=== PATIENT | female | born 1995 | race Caucasian/White ===

== ENCOUNTER 2023-11-04 15:07 | Inpatient (IN) ==
--- NOTE | 2023-11-04 16:45 | Anesthesiology Consultation ---
Date of Service November 04, 2023 Assessment & Plan (1) Encounter for pre-operative examination: Chart Review Chart Review: Patient NOT seen in Pre Admission Testing emergent Consults Requested none History Surgery Operation Date: 11/04/23 16:40 Proposed Procedures p Section in LD - Emerson Desouza MD Height/Weight Height: 5 ft 5 in Weight: 97.069 kg Allergies Allergy/AdvReac Type Severity Reaction Status Date / Time No Known Allergies Allergy Verified 11/04/23 14:02 Medications Home Medications Medication Instructions Recorded Confirmed Last Taken fish oil-dha-epa PO 04/25/23 11/04/23 Unknown magnesium PO 04/25/23 11/04/23 Unknown [id number] PO 04/25/23 11/04/23 Unknown [] Past Medical History Medical History Varicella vaccine Past Family History Family History Grandmother (Maternal) Alzheimer disease Father Coronary heart disease Heart disease Hypertension Myocardial infarction Grandfather (Paternal) Heart disease Osteoarthritis Mother Stroke Grandmother (Paternal) Ovarian cancer Other Cancer Testicular cancer Denies family history of Rheumatoid arthritis Sudden SIDS (sudden syndrome) Prostate cancer Diabetes Deep vein thrombosis Osteoporosis Dyslipidemia Cerebral aneurysm Bipolar disorder Clotting disorder Crohn's disease Dementia Depression Kidney disease Breast cancer Schizophrenia Congenital kidney disease Gestational diabetes Lung cancer COPD (chronic obstructive pulmonary disease) Colorectal cancer Pulmonary embolism Lung disease Ulcerative colitis Colonic polyp Asthma Cystic kidney disease Past Surgical History Surgical History S/P wisdom tooth extraction [place] teeth removed Social History Smoking Status: Never smoker Do You Dip or Chew Tobacco: No Hx Alcohol Use: No Hx Substance Use: No Physical Exam Vital Signs Last Vital Signs Temp 97.9 F 11/04/23 15:34 Pulse 69 11/04/23 15:53 Resp 16 11/04/23 15:34 BP 118/72 11/04/23 15:40 Pulse Ox 96 11/04/23 15:53
[2023-11-04] MEDS: CITRIC ACID/SODIUM CITRATE 15 ML UDC ONE (16:46)
[2023-11-04] MEDS ORDERED: NALOXONE HCL 0.08 MG in SYRINGE 1.8 ML IV PRN (17:10)
[2023-11-04] MEDS ORDERED: LACTATED RINGER'S 500 ML IV PRN (17:10)
[2023-11-04] MEDS ORDERED: ONDANSETRON INJ 2 MG/ML 2 ML VIAL IV PRN (17:10)
[2023-11-04] MEDS ORDERED: ePHEDrine sulfate 50 MG/ML AMP IV PRN (17:10)
[2023-11-04] MEDS ORDERED: NALOXONE HCL 0.4 MG/1 ML VIAL/CARP IV PRN (17:10)
[2023-11-04] MEDS ORDERED: diphenhydrAMINE 50 MG/ML VIAL IV PRN (17:10)
[2023-11-04] MEDS ORDERED: HYDROmorphone INJ 0.5 MG/0.5 ML SYR IV PRN (17:10)
[2023-11-04] MEDS ORDERED: KETOROLAC 30 MG/ML VIAL IV PRN (17:10)
[2023-11-04] MEDS ORDERED: PROMETHAZINE 6.25 MG/50.25 ML BAG IV PRN (17:10)
[2023-11-04] MEDS ORDERED: NALBUPHINE HCL INJ 10 MG/ML AMP IV PRN (17:10)
[2023-11-04] MEDS ORDERED: ACETAMINOPHEN 1,000 MG/100 ML VIAL IV PRN (17:10)
[2023-11-04] MEDS ORDERED: NALOXONE HCL 1 MG in SODIUM CHLORIDE 0.9% 1,000 ML IV PRN (17:10)
[2023-11-04] MEDS ORDERED: NO NARCOTICS OR SEDATIVES SCH (17:15)
[2023-11-04] MEDS ORDERED: DC INTRASPINAL MORPHINE SCH (17:15)
[2023-11-04 17:23] LABS: Hemoglobin 12.3 g/dl (12.0-16.0); Mean Corpuscular Hemoglobin 30.8 pg (25.0-34.0); Mean Corpuscular Hgb Conc 35.1 g/dL (32.0-36.0); Mean Corpuscular Volume 87.5 fL (80.0-100.0); Mean Platelet Volume 10.5 fL (9.4-12.4); Platelet Count 201 K/uL (130-400); RDW Standard Deviation 41.5 fL (36.4-46.3); White Blood Count 11.34 K/ul (4.8-10.8)
[2023-11-04] MEDS ORDERED: MAGNESIUM HYDROXIDE SUSP 30 ML UDC PO PRN (17:41)
[2023-11-04] MEDS ORDERED: SENNA 8.6 MG TAB PO PRN (17:41)
[2023-11-04] MEDS ORDERED: HYDROCORTISONE ACETATE 25 MG SUPP PR PRN (17:41)
[2023-11-04] MEDS ORDERED: CALCIUM CARBONATE 500 MG CHEWABLE TAB PO PRN (17:41)
[2023-11-04] MEDS ORDERED: BENZOCAINE 20% SPRY 85 APPLN/85 GM CAN EXT PRN (17:41)
--- NOTE | 2023-11-04 17:53 | Anesthesiology Progress Note ---
Date of Service November 04, 2023 Anesthesia Post Procedure Vital Signs Vital Signs: Temp Pulse Resp BP Pulse Ox 11/04/23 17:51 58 L 99 11/04/23 17:47 57 L 130/73 11/04/23 17:46 61 100 11/04/23 15:53 69 96 11/04/23 15:48 75 97 11/04/23 15:43 66 96 11/04/23 15:40 62 118/72 11/04/23 15:38 70 97 11/04/23 15:34 97.9 F 69 16 118/72 97 11/04/23 15:33 73 97 11/04/23 15:28 81 97 11/04/23 15:23 77 96 11/04/23 15:18 73 96 Transfer of Care Handoff Completed per policy Notes Mental Status: alert / awake / arousable and participated in evaluation Patient Amnestic to Procedure: Yes Nausea / Vomiting: adequately controlled Pain: adequately controlled Airway Patency, RR, SpO2: stable & adequate BP & HR: stable & adequate Hydration State: stable & adequate Neuraxial Anesthesia: was administered and sensory block is resolving Anesthetic Complications: no major complications apparent and Pt Satisfied with anesthetic care
--- NOTE | 2023-11-04 17:56 | Post Operative Brief Note ---
PG Immediate Post Op with CF Date of Surgery November 04, 2023 Pre & Post Diagnosis Operation Date: 11/04/23 16:40 Preop diagnosis:term intrauterine at 41 weeks. Nonreassuring monitoring with prolonged deceleration remote from delivery Postop diagnosis: same status post procedure I identified the patient and participated in the time-out.: Yes Procedure Operation Date: 11/04/23 16:40 Urgent primary low-transverse section Surgeon Emerson Desouza MD Cyber Systems Engineer Nursing staff Estimated Blood Loss 607 Findings Consistent with Post-Op Diagnosis OB Procedure charges OB Charges [id number]
--- NOTE | 2023-11-04 17:57 | Operative Report ---
PG Post Operative Report Pre & Post Diagnosis Operation Date: 11/04/23 16:40 Preop diagnosis: Term at 41 weeks. Nonreassuring monitoring with prolonged deceleration remote from delivery Postop diagnosis: Same status post procedure I identified the patient and participated in the time-out.: Yes Procedure Operation Date: 11/04/23 16:40 Primary low-transverse section Surgeon Emerson Desouza MD Mixing Machine Tender Cork Rod Nursing staff Estimated Blood Loss 607 Findings Consistent with Post-Op Diagnosis Specimens Placenta Description of Procedure Patient was taken the operating room after consent was ensured. Upon presentation she was properly identified. Anesthesia obtained and patient prepped and draped in normal sterile fashion. Preprocedural timeout was pe rformed. A Pfannenstiel incision was made with a knife. This was carried down to underlying fascia with the Bovie and blunt dissection. The fascia was nicked at the midline with a knife and extended laterally with pickjamal and Holland scissors. Abdominal cavity was entered bluntly and placed on stretch to provide adequate room for delivery. A low transverse uterine incision was made with a knife. Head of the was delivered through the hysterotomy followed by body and shoulders. noted to be vigorous at time of delivery and a 30 second delayed cord clamping was initiated after which the cord was double clamped and cut. Baby taken to the waiting nursery staff. Attention was turned to delivery of the placenta which delivered intact with three-vessel cord gentle cord traction. Uterus was exteriorized and several passes were made to remove any remaining membranes with a dry lap. Hysterotomy was reapproximated with 0 Vicryl continuous running lock stitch with a second i mbricating layer performed and excellent hemostasis noted. Posterior cul-de-sac cleaned of clots and debris's. Uterus returned maternal abdomen and right left paracolic gutters cleaned of clots and debris's. Hysterotomy remained hemostatic. Subcutaneous fascia and muscle layers inspected noted be hemostatic. Fascia was reapproximated 0 Vicryl continuous running stitch. Subcutaneous layer reapproximated 2 layers using 2-0 plain. Skin reapproximated with 3-0 Vicryl and continuous subcuticular stitch. Dermabond placed on top. Both mother and in stable condition at the completion of the case. Needle sponge and instrument counts correct at the completion of the case I attest to the content of the Intraoperative Record and any orders documented therein. Any exceptions are noted below. OB Procedure Charges [id number]
--- NOTE | 2023-11-04 21:03 | History & Physical Report ---
Date of Service November 04, 2023 Assessment & Plan (1) Supervision of normal first : Plan: Asya is a 28-year-old G1, P0 currently at 41 weeks 3 days gestational age presented initially for prolonged monitoring secondary to nonreassuring NST in clinic with late decelerations noted. Patient was noted to have late decelerations with intermittent episodes of mild to moderate variability. After a 6-minute prolonged deceleration noted I discussed delivery recommendation via a primary low-transverse section secondary to nonreassuring monitoring with prolonged deceleration remote from delivery. Discussed inability to induce secondary to the recurrent late decelerations. Discussed primary including risk and benefits. Consent forms reviewed and signed. (2) Non-reassuring heart rate with late deceleration: History of Present Illness Primary Care Provider: Karoline Serna MD Asya is a 28-year-old G1, P0 currently at 41 weeks 3 days gestational age presented for extended monitoring secondary to deceleration noted on NST in clinic. Patient was monitored for approximately 45 minutes to 1 hour. During that time there is noted to be several late decelerations and mild to moderate variability intermittently. Upon presentation to discuss options due to the noted tracing concerns patient was noted to have a 6-minute prolonged deceleration to the low 60s. Maternal resuscitation was performed and ultimately heart rate did come back up to the 120s. Due to the recurrent late decelerations and the prolonged deceleration I discussed delivery via a primary for nonreassuring tracing remote from delivery with inability to augment due to poor tracing. I discussed the procedure in detail including risks and benefits. Consent forms reviewed and signed. OB Labs: Blood Type O Positive 05/02/23 Antibody Screen NEGATIVE 05/02/23 Hemoglobin 11.6 g/dl (12.0-16.0) L 08/09/23 Hematocrit 33.6 % (37.0-47.0) L 08/09/23 Mean Corpuscular Volume 88.6 fL (80.0-100.0) 05/02/23 Platelet Count 259 K/uL (130-400) 05/02/23 Rubella IgG Antibody Immune (Immune) 05/02/23 Rapid Plasma Reagin Nonreactive (Nonreactive) 05/02/23 Hepatitis B Surface Antigen. NON-REACTIVE (NON-REACTIVE) 05/02/23 Hepatitis C Antibody (EIA) NON-REACTIVE (NON-REACTIVE) 05/02/23 HIV (1&2) Ag and Ab Confirmation NON-REACTIVE (NON-REACTIVE) 05/02/23 Glucose 1 Hour 50 gm Load 143 mg/dl (70-130) H 06/12/23 OB Optional Labs: Chlamydia trachomatis RNA Not Detected (NotDetected) 05/02/23 Neisseria gonorrhoeae RNA Not Detected (NotDetected) 05/02/23 Labs Reviewed: Declines carrier screening--mln cfdna-low risk--mln gbs neg--akh 2 hr gtt x 2 wnl Allergies Allergy/AdvReac Type Severity Reaction Status Date / Time No Known Allergies Allergy Verified 11/04/23 14:02 Home Medications Medication Instructions Recorded Confirmed Type fish oil-dha-epa PO 04/25/23 11/04/23 History magnesium PO 04/25/23 11/04/23 History [id number] PO 04/25/23 11/04/23 History [] Patient History Medical History Varicella vaccine Surgical History S/P wisdom tooth extraction [place] teeth removed Family History Grandmother (Maternal) Alzheimer disease Father Coronary heart disease Heart disease Hypertension Myocardial infarction Grandfather (Paternal) Heart disease Osteoarthritis Mother Stroke Grandmother (Paternal) Ovarian cancer Other Cancer Testicular cancer Denies family history of Rheumatoid arthritis Sudden SIDS (sudden syndrome) Prostate cancer Diabetes Deep vein thrombosis Osteoporosis Dyslipidemia Cerebral aneurysm Bipolar disorder Clotting disorder Crohn's disease Dementia Depression Kidney disease Breast cancer Schizophrenia Congenital kidney disease Gestational diabetes Lung cancer COPD (chronic obstructive pulmonary disease) Colorectal cancer Pulmonary embolism Lung disease Ulcerative colitis Colonic polyp Asthma Cystic kidney disease Social History (Updated 04/25/23 @ 10:00 by Amber Gregorio RN) Smoking Status: Never smoker Second Hand Exposure: No; Do You Dip or Chew Tobacco: No; Tobacco Cessation Education Requested by Patient: No Hx Alcohol Use: No Hx Substance Use: No Preferred Language: Finnish Communication Ability: Effective Hearing Ability: Normal Watershed Manager Required: No Beliefs That Will Affect Care: None marital status: marital status details: Gigi Mueller (31) Current Living Situation: Spouse Current Living Situation Comment: [facility]- current occupational status: employed current occupation: [employer] How many Children do You have: 0 Other Information That Helps Us Care for You: No Feels Safe at Home: Yes Safety Concerns: Feels Safe At This Time Childhood Exposure to Second-Hand Smoke: No Diet: vegan and vegetarian caffeine: No during the past year weight has: increased > 10 lbs Dental Care, Regularly: No Physical Activity Frequency: 3-4 Times per Week Seatbelt Use: always Sunscreen Use: No Do you think of yourself as: bisexual Sexual Activity: has been sexually active, but not for at least 12 months Gender Identity: Female Assistive Devices: None Results & Data Vital Signs (Past 12 Hours) Vital Signs Temp Pulse Resp BP Pulse Ox 11/04/23 15:53 69 96 11/04/23 15:48 75 97 11/04/23 15:43 66 96 11/04/23 15:40 62 118/72 11/04/23 15:38 70 97 11/04/23 15:34 36.6 C 69 16 118/72 97 11/04/23 15:33 73 97 11/04/23 15:28 81 97 11/04/23 15:23 77 96 11/04/23 15:18 73 96 Coding Level of Care Code None Diagnoses Encounter for supervision of normal first in third trimester Z34.03 Trimester: third trimester Non-reassuring heart rate with late deceleration O36.8390 (1) Supervision of normal first Trimester: third trimester Qualified Code(s): Z34.03 - Encounter for supervision of normal first , third trimester
[2023-11-04] MEDS: ceFAZolin 2000MG 2,000 MG/15 ML SYR IV SCH (21:50)
[2023-11-04] MEDS: CITRIC ACID/SODIUM CITRATE 15 ML UDC PO SCH (21:50)
[2023-11-04] MEDS: MoRPHine SULFATE PF 1 MG/ML 10 ML AMP/VIAL INT SPINAL ONE (21:51)
[2023-11-04] MEDS: LACTATED RINGER'S 1,000 ML IV SCH ×3 (21:51)
[2023-11-04] MEDS: SODIUM CHLORIDE 0.9% 1,000 ML IV SCH (21:51)
[2023-11-04] MEDS: ACETAMINOPHEN 500 MG TAB PO SCH (21:52)
[2023-11-04] MEDS: OXYTOCIN 20 UNITS/LR 1,002 ML IV SCH (21:56)
[2023-11-04] MEDS: ACETAMINOPHEN 325 MG TAB PO SCH (22:29)
[2023-11-04] MEDS: IBUPROFEN 600 MG TAB PO SCH (22:29)
[2023-11-04] MEDS: DIPHTHER/TETAN/PERTUS Vaccine (Tdap, Adol/Adult) 0.5mL IM ONE (22:32)
[2023-11-04] MEDS: DOCUSATE SODIUM 100 MG CAP PO SCH (23:09)
[2023-11-04] MEDS: SIMETHICONE 80 MG CHEW PO SCH (23:10)
[2023-11-05 06:39] LABS: Hematocrit (blood only) 29.8 % (37.0-47.0); Hemoglobin 10.7 g/dl (12.0-16.0)
[2023-11-05] MEDS: PRENATAL VITAMIN 1 TAB PO SCH (07:35)
[2023-11-05] MEDS: FERROUS SULFATE 325 MG TAB PO SCH (07:35)
--- NOTE | 2023-11-05 08:10 | Obstetrical Progress Note ---
Date of Service <Niels Ribera MD - Last Filed: 11/05/23 08:31> November 05, 2023 Assessment & Plan <Niels Ribera MD - Last Filed: 11/05/23 08:31> (1) care and examination: POD#1: Stable, continue routine care, work on regaining normal bowel and bladder fxn Rh+, gbs neg, ri <Emerson Desouza MD - Last Filed: 11/06/23 16:18> (1) care and examination: Subjective <Niels Ribera MD - Last Filed: 11/05/23 08:31> Asya is a 28 y/o female who is POD#1 following delivery at 41 weeks. She reports minimal pain (03/19). She is ambulating and eating well. She is passing gas but has not had a BM. She reports her bladder feels full but she has not been able to urinate without a cath. Currently breast feeding. Constitutional: no fever, no chills or no sweats Respiratory: no dyspnea Cardiovascular: no chest pain, no palpitations or no calf pain Breast: no breast pain Genitourinary (female): no dysuria Neurologic: no headache(s) no changes in vision, no headaches Physical Exam <Niels Ribera MD - Last Filed: 11/05/23 08:31> General: Alert, oriented. No acute distress. Cardiac: Regular rate and rhythm, no murmurs, rubs, or gallops. Respiratory: Clear to auscultation bilaterally, no wheezes/rales/rhonchi. No increased work of breathing. Symmetrical chest rise. No respiratory distress. Abdomen: Soft, nontender, nondistended. Bowel sounds present. Uterus: Uterine fundus firm, surgical scar clean and healing well. Lower extremities: No lower extremity edema or swelling. No deep calf pain. Results & Data <Niels Ribera MD - Last Filed: 11/05/23 08:31> Vital Signs (Past 12 Hours) Vital Signs Temp Pulse Resp BP Pulse Ox O2 Del Method 11/05/23 07:05 18 96 11/05/23 06:05 16 98 11/05/23 05:10 20 95 11/05/23 04:15 36.7 C 70 18 113/72 98 Room Air 08/28/24 03:00 16 97 11/05/23 02:00 16 98 11/05/23 01:00 18 99 11/05/23 00:00 18 99 11/04/23 23:05 36.7 C 63 18 116/75 98 Room Air 11/04/23 22:38 18 97 11/04/23 21:45 16 100 11/04/23 20:45 16 99 Laboratory Results 11/05/23 05:51 Supervising Physician <Emerson Desouza MD - Last Filed: 11/06/23 16:18> Co-Signing Physician Notes Patient seen with resident and agree with the above findings and plan. Routine care Resident Activity Tracking <Niels Ribera MD - Last Filed: 11/05/23 08:31> Resident Involvement: Resident Care Provided Care Provided: Adult Hospital Medicine
[2023-11-05] MEDS ORDERED: oxyCODONE HCL IR 5 MG TAB (IMMEDIATE RELEASE) PO PRN (11:10)
[2023-11-05] MEDS ORDERED: HYDROmorphone INJ 0.5 MG/0.5 ML SYR IV PRN (11:10)
[2023-11-05] MEDS ORDERED: diphenhydrAMINE 50 MG/ML VIAL IV PRN (11:10)
[2023-11-05] MEDS ORDERED: diphenhydrAMINE Capsule 25 MG CAP PO PRN (11:10)
[2023-11-05] MEDS ORDERED: PROMETHAZINE 12.5 MG/50.5 ML BAG IV PRN (11:10)
[2023-11-05] MEDS ORDERED: ONDANSETRON INJ 2 MG/ML 2 ML VIAL IV PRN (11:10)
[2023-11-05] MEDS: KETOROLAC 30 MG/ML VIAL IV SCH (12:03)
[2023-11-05] MEDS: bisacodyL 5 MG TABEC PO SCH (19:53)
--- NOTE | 2023-11-06 05:53 | Obstetrical Progress Note ---
Date of Service <Niels Ribera MD - Last Filed: 11/06/23 07:11> November 06, 2023 Assessment & Plan <Niels Ribera MD - Last Filed: 11/06/23 07:11> (1) care and examination: POD#2: Stable, continue routine care, would like to stay one more night Rh+, gbs neg, ri <Juliette Velasquez MD - Last Filed: 11/06/23 07:23> (1) care and examination: Subjective <Niels Ribera MD - Last Filed: 11/06/23 07:11> Asya is a 28 y/o female who is POD#2 following delivery at 41 weeks. She was very tearful this morning, reports out of gratitude. Pain is well controlled except mild gas pain radiating to shoulder. She is ambulating, eating and drinking well. Has not had BM but is passing gas. Currently breast feeding. Constitutional: no fever, no chills or no sweats Respiratory: no dyspnea Cardiovascular: no chest pain, no palpitations or no calf pain Breast: no breast pain Genitourinary (female): no dysuria Neurologic: no headache(s) no changes in vision, no headaches Physical Exam <Niels Ribera MD - Last Filed: 11/06/23 07:11> General: Alert, oriented. No acute distress. Cardiac: Regular rate and rhythm, no murmurs, rubs, or gallops. Respiratory: Clear to auscultation bilaterally, no wheezes/rales/rhonchi. No increased work of breathing. Symmetrical chest rise. No respiratory distress. Abdomen: Soft, nontender, nondistended. Bowel sounds present. Uterus: Uterine fundus firm, surgical scar clean and healing well. Lower extremities: No lower extremity edema or swelling. No deep calf pain. Results & Data <Niels Ribera MD - Last Filed: 11/06/23 07:11> Vital Signs (Past 12 Hours) Vital Signs Temp Pulse Resp BP Pulse Ox O2 Del Method 11/05/23 23:00 36.6 C 69 18 125/75 96 Room Air 11/05/23 19:40 36.5 C 63 18 111/70 97 Room Air Supervising Physician <Juliette Velasquez MD - Last Filed: 11/06/23 07:23> Co-Signing Physician Notes Resident Physician Supervision Note: I interviewed and examined the patient. Discussed with Dr. Ribera and agree with findings and plan as documented in the note. Any exceptions or clarifications are listed here: POD2 s/p pLTCS, doing well. VSS, exam benign and wnl. Continue routine care, discussed gas pain tx Documented By: Juliette Velasquez MD Resident Activity Tracking <Niels Ribera MD - Last Filed: 11/06/23 07:11> Resident Involvement: Resident Care Provided Care Provided: Adult Hospital Medicine
[2023-11-06] MEDS: IBUPROFEN 600 MG TAB PO PRN (17:09)
[2023-11-06] MEDS: ACETAMINOPHEN 325 MG TAB PO PRN (17:09)
[2023-11-06] MEDS ORDERED: bisacodyL 10 MG SUPP PR PRN (17:42)
[2023-11-06 18:55] VITALS: PULSE 62; RESP 18
[2023-11-06 22:59] VITALS: BP 132/83; TEMP 98.1; O2SAT 99
--- NOTE | 2023-11-07 07:01 | Obstetrical Progress Note ---
Date of Service <Niels Ribera MD - Last Filed: 11/07/23 07:31> November 07, 2023 Assessment & Plan <Niels Ribera MD - Last Filed: 11/07/23 07:31> (1) care and examination: POD#3: Stable, continue routine care, ready for d/c today Rh+, gbs neg, ri <Maria Alejandra Alegria MD, FACOG - Last Filed: 11/07/23 07:37> (1) care and examination: Subjective <Niels Ribera MD - Last Filed: 11/07/23 07:31> Asya is a 28 y/o female who is POD#3 following delivery at 41 weeks. She feels well, her pain well controlled w analgesics. She has been walking, eating, drinking, and urinating normally. She has not had a BM yet but is passing gas. She does report some back pain but attributes it to sitting in a hospital bed so long. Constitutional: no fever, no chills or no sweats Respiratory: no dyspnea Cardiovascular: no chest pain, no palpitations or no calf pain Breast: no breast pain Genitourinary (female): no dysuria Neurologic: no headache(s) Physical Exam <Niels Ribera MD - Last Filed: 11/07/23 07:31> General: Alert, oriented. No acute distress. Cardiac: Regular rate and rhythm, no murmurs, rubs, or gallops. Respiratory: Clear to auscultation bilaterally, no wheezes/rales/rhonchi. No increased work of breathing. Symmetrical chest rise. No respiratory distress. Abdomen: Soft, nontender, nondistended. Bowel sounds present. Uterus: Uterine fundus firm, surgical scar clean and healing well. Lower extremities: No lower extremity edema or swelling. No deep calf pain. Results & Data <Niels Ribera MD - Last Filed: 11/07/23 07:31> Vital Signs (Past 12 Hours) Vital Signs Temp Pulse Resp BP Pulse Ox O2 Del Method 11/06/23 22:58 36.7 C 62 18 132/83 99 Room Air Supervising Physician <Maria Alejandra Alegria MD, FACOG - Last Filed: 11/07/23 07:37> Co-Signing Physician Notes Resident Physician Supervision Note: I interviewed and examined the patient. Discussed with Dr. Ribera and agree with findings and plan as documented in the note. Any exceptions or clarifications are listed here: Patient doing well. Plan d/c home. Instructions given. Documented By: Maria Alejandra Alegria MD, FACOG Resident Activity Tracking <Niels Ribera MD - Last Filed: 11/07/23 07:31> Resident Involvement: Resident Care Provided Care Provided: Adult Hospital Medicine
--- NOTE | 2023-11-10 09:47 | Discharge Summary ---
Date of Service November 10, 2023 Admission HPI Per Admitting Provider Asya is a 28-year-old G1, P0 currently at 41 weeks 3 days gestational age presented for extended monitoring secondary to deceleration noted on NST in clinic. Patient was monitored for approximately 45 minutes to 1 hour. During that time there is noted to be several late decelerations and mild to moderate variability intermittently. Upon presentation to discuss options due to the noted tracing concerns patient was noted to have a 6-minute prolonged deceleration to the low 60s. Maternal resuscitation was performed and ultimately heart rate did come back up to the 120s. Due to the recurrent late decelerations and the prolonged deceleration I discussed delivery via a primary for nonreassuring tracing remote from delivery with inability to augment due to poor tracing. I discussed the procedure in detail including risks and benefits. Consent forms reviewed and signed. OB Labs: Blood Type O Positive 05/02/23 Antibody Screen NEGATIVE 05/02/23 Hemoglobin 11.6 g/dl (12.0-16.0) L 08/09/23 Hematocrit 33.6 % (37.0-47.0) L 08/09/23 Mean Corpuscular Volume 88.6 fL (80.0-100.0) 05/02/23 Platelet Count 259 K/uL (130-400) 05/02/23 Rubella IgG Antibody Immune (Immune) 05/02/23 Rapid Plasma Reagin Nonreactive (Nonreactive) 05/02/23 Hepatitis B Surface Antigen. NON-REACTIVE (NON-REACTIVE) 05/02/23 Hepatitis C Antibody (EIA) NON-REACTIVE (NON-REACTIVE) 05/02/23 HIV (1&2) Ag and Ab Confirmation NON-REACTIVE (NON-REACTIVE) 05/02/23 Glucose 1 Hour 50 gm Load 143 mg/dl (70-130) H 06/12/23 OB Optional Labs: Chlamydia trachomatis RNA Not Detected (NotDetected) 05/02/23 Neisseria gonorrhoeae RNA Not Detected (NotDetected) 05/02/23 Labs Reviewed: Declines carrier screening--mln cfdna-low risk--mln gbs neg--akh 2 hr gtt x 2 wnl Discharge Data Consultations 11/04/23 16:39 Consult Anesthesiology Stat Procedures Performed Operation Date: 11/04/23 16:40 Actual Procedures p Section in LD; Live male child at 1705(Bilateral) - Emerson Desouza MD Hospital Course (1) care and examination: Asya is a 28-year-old G1, P0 presented at 41 weeks 4 days gestational age due to nonreassuring testing in clinic. Underwent an urgent primary section secondary to nonreassuring monitoring with a prolonged decel and recurrent late decelerations proceeding. Procedure was performed without complication. Was discharged home on day 3 in stable condition. No complications in hospital course noted Coding Level of Care Code None Diagnoses care and examination Z39.2
== END 2023-11-07 14:35 | disposition home or self-care (01) | DRG 788 ==
LOC: OPB 15:07 → 4S1 15:08 → 4E2 19:00
DX: O48.0 Post-term pregnancy; Z37.0 Single live birth; O69.89X0 Labor and delivery complicated by other cord complications, not applicable or unspecified; O76 Abnormality in fetal heart rate and rhythm complicating labor and delivery; Z3A.41 41 weeks gestation of pregnancy